=== PATIENT | female | born 1985 | race Two or more races ===

== ENCOUNTER 2022-05-31 20:35 | Emergency (ER) | payer OTHER | END 2022-05-31 22:44 | disposition left against medical advice (07) | LOC: ER 20:35 | DX: K92.1 Melena (principal); Z53.21 Procedure and treatment not carried out due to patient leaving prior to being seen by health care provider ==

== ENCOUNTER 2022-06-01 20:10 | Emergency (ER) | payer OTHER ==
[~2022-06-01] VITALS: Ht 137.2 cm; Wt 89.0 kg
[2022-06-01 20:19] VITALS: BP 113/87
[2022-06-01 21:07] LABS: Basophils # (auto) 0 10 ^3/uL (0-0.2); Basophils % (auto) 0.5 % (0.0-2.0); Eosinophils # (auto) 0.3 10 ^3/uL (0-0.8); Eosinophils % (auto) 3.4 % (0.0-7.0); Hematocrit 38.9 % (36.0-46.0); Hemoglobin 13.5 g/dL (12.2-16.2); Lymphocytes # (auto) 2.3 10 ^3/uL (0.4-5.4); Mean Corpuscular Hemoglobin 31.9 pg (28.0-32.0); Mean Corpuscular Hgb Conc. 34.9 g/dL (32.0-36.0); Mean Corpuscular Volume 91.6 fL (80.0-100.0); Monocytes # (auto) 0.5 10 ^3/uL (0-1.3); Monocytes % (auto) 4.7 % (0.0-12.0); Neutrophils % (auto) 68.4 % (37.0-80.0); Nucleated Red Blood Cells % 0.1 %; Red Blood Cells 4.24 10^6/uL (4.0-5.20); Red Cell Distribution Width 14.2 % (11.8-14.3); White Blood Cell 10.2 10^3/uL (4.4-10.8)
[2022-06-01 21:13] LABS: Albumin 3.7 g/dL (3.4-5.0); Calcium 8.2 mg/dL (8.5-10.1); Potassium 4.2 mmol/L (3.5-5.1)
[2022-06-01 21:18] LABS: BUN/Creatinine Ratio 16.2; Bilirubin, Total 0.5 mg/dL (0.2-1.0); Total Protein 7.6 g/dL (6.4-8.2)
[2022-06-01] MEDS ORDERED: SODIUM CHLORIDE 0.9% 1,000 ML IV ONE (22:45)
[2022-06-01] MEDS ORDERED: GOLYTELY 4L KIT PO ONE (22:45)
[2022-06-01 23:18] LABS: Urine Bacteria NONE SEEN /hpf (None Seen); Urine Blood Negative /uL (Negative); Urine Specific Gravity 1.019 (1.001-1.035); Urine WBC 7 /hpf (0 - 5)
[2022-06-01 23:28] LABS: Amphetamine Screen, Urine NEGATIVE (NEGATIVE); Barbiturate Scree,Urine NEGATIVE (NEGATIVE); Benzodiazephine Screen, Urine NEGATIVE (NEGATIVE); Cannabinoid Screen, Urine NEGATIVE (NEGATIVE); Cocaine Screen, Urine NEGATIVE (NEGATIVE); Opiate Scree,Urine NEGATIVE (NEGATIVE); Phencyclidine Screen, Urine NEGATIVE (NEGATIVE)
== END 2022-06-01 20:20 | disposition home or self-care (01) ==
LOC: ER 20:12
DX: K59.00 Constipation, unspecified (principal); F10.10 Alcohol abuse, uncomplicated; Z90.49 Acquired absence of other specified parts of digestive tract; Z79.899 Other long term (current) drug therapy; Z88.2 Allergy status to sulfonamides; Y90.6 Blood alcohol level of 120-199 mg/100 ml
CPT/HCPCS: 36415; 74176; 80053; 80307; 80320; 81001; 83690; 84702; 85025

== ENCOUNTER 2022-06-03 09:10 | Emergency (ER) | payer OTHER ==
[~2022-06-03] VITALS: Ht 162.6 cm; Wt 87.3 kg
[2022-06-03 09:20] VITALS: BP 129/79
[2022-06-03 10:00] LABS: Urine Bacteria FEW /hpf (None Seen); Urine Blood Negative /uL (Negative); Urine Hyaline Cast FEW /lpf (0 - 2); Urine Specific Gravity 1.016 (1.001-1.035); Urine WBC 4 /hpf (0 - 5)
[2022-06-03] MEDS ORDERED: CEPH-510 PO (10:15)
[2022-06-03 10:23] LABS: Basophils # (auto) 0 10 ^3/uL (0-0.2); Basophils % (auto) 0.4 % (0.0-2.0); Eosinophils # (auto) 0.3 10 ^3/uL (0-0.8); Eosinophils % (auto) 3.8 % (0.0-7.0); Hematocrit 41.7 % (36.0-46.0); Hemoglobin 13.8 g/dL (12.2-16.2); Lymphocytes # (auto) 1.5 10 ^3/uL (0.4-5.4); Lymphocytes % (auto) 18.2 % (10.0-50.0); Mean Corpuscular Hemoglobin 30.7 pg (28.0-32.0); Mean Corpuscular Hgb Conc. 33.2 g/dL (32.0-36.0); Mean Corpuscular Volume 92.5 fL (80.0-100.0); Monocytes # (auto) 0.4 10 ^3/uL (0-1.3); Monocytes % (auto) 5.3 % (0.0-12.0); Neutrophils # (auto) 5.9 10 ^3/uL (1.6-8.6); Neutrophils % (auto) 72.3 % (37.0-80.0); Red Blood Cells 4.51 10^6/uL (4.0-5.20); Red Cell Distribution Width 14.6 % (11.8-14.3); White Blood Cell 8.1 10^3/uL (4.4-10.8)
[2022-06-03 11:17] LABS: Potassium 4.6 mmol/L (3.5-5.1)
[2022-06-03 11:23] LABS: BUN/Creatinine Ratio 12.6; Calcium 8.9 mg/dL (8.5-10.1)
[2022-06-03 11:29] LABS: Bilirubin, Total 0.8 mg/dL (0.2-1.0); Total Protein 7.5 g/dL (6.4-8.2)
== END 2022-06-03 12:28 | disposition left against medical advice (07) ==
LOC: ER 09:13
DX: N39.0 Urinary tract infection, site not specified (principal); Z32.02 Encounter for pregnancy test, result negative; Z90.49 Acquired absence of other specified parts of digestive tract; Z88.2 Allergy status to sulfonamides
CPT/HCPCS: 36415; 74176; 80053; 81001; 81025; 85025

== ENCOUNTER 2023-01-27 10:09 | Emergency (ER) | payer OTHER ==
[~2023-01-27] VITALS: Ht 165.1 cm; Wt 83.0 kg
[~2023-01-27 10:09] MED LIST: CEPH-510 PO
[2023-01-27] MEDS ORDERED: IOHEXOL 300 MG/ML 100ML BOTTLE IJ ONE (10:28)
[2023-01-27 10:41] LABS: Basophils # (auto) 0 10 ^3/uL (0-0.2); Basophils % (auto) 0.6 % (0.0-2.0); Eosinophils # (auto) 0.4 10 ^3/uL (0-0.8); Eosinophils % (auto) 6.7 % (0.0-7.0); Hematocrit 40.5 % (36.0-46.0); Lymphocytes # (auto) 1.2 10 ^3/uL (0.4-5.4); Lymphocytes % (auto) 20.8 % (10.0-50.0); Mean Corpuscular Hemoglobin 30.7 pg (28.0-32.0); Mean Corpuscular Hgb Conc. 34.7 g/dL (32.0-36.0); Mean Corpuscular Volume 88.3 fL (80.0-100.0); Monocytes # (auto) 0.4 10 ^3/uL (0-1.3); Monocytes % (auto) 7.1 % (0.0-12.0); Neutrophils # (auto) 3.9 10 ^3/uL (1.6-8.6); Neutrophils % (auto) 64.8 % (37.0-80.0); Red Blood Cells 4.58 10^6/uL (4.0-5.20)
[2023-01-27 11:01] LABS: Albumin 3.7 g/dL (3.4-5.0); Calcium 8.8 mg/dL (8.5-10.1); Potassium 4.8 mmol/L (3.5-5.1)
[2023-01-27 11:05] LABS: BUN/Creatinine Ratio 15.6 (10.0-20.0); Total Protein 7.6 g/dL (6.4-8.2)
[2023-01-27] MEDS ORDERED: ONDANSETRON HCL 4 MG/2 ML VIAL IV ONE (11:15)
[2023-01-27] MEDS ORDERED: MORPHINE SULFATE 4 MG/ML SYR/VIAL IV ONE (11:15)
[2023-01-27] MEDS ORDERED: TRAM50TA2 PO (12:14)
[2023-01-27] MEDS ORDERED: TETANUS-DIPTH-ACEL PERTUSSIS 0.5ML SYR Tdap IM ONE (12:30)
[2023-01-27 12:49] VITALS: BP 113/75
== END 2023-01-27 13:24 | disposition home or self-care (01) ==
LOC: ER 10:09 → EDBD 10:09 → ER 13:24
DX: S01.312A Laceration without foreign body of left ear, initial encounter (principal); S16.1XXA Strain of muscle, fascia and tendon at neck level, initial encounter; M54.9 Dorsalgia, unspecified; M25.562 Pain in left knee; F17.290 Nicotine dependence, other tobacco product, uncomplicated; Z88.2 Allergy status to sulfonamides; V89.2XXA Person injured in unspecified motor-vehicle accident, traffic, initial encounter; Y93.89 Activity, other specified; Y92.89 Other specified places as the place of occurrence of the external cause; Y99.8 Other external cause status
CPT/HCPCS: 36415; 70450; 72125; 73552; 73560; 74177; 80053; 85025; 90471; 90715; 96374; 96375; 99285; J2270; J2405; Q9967

== ENCOUNTER 2023-01-31 17:03 | Emergency (ER) | payer OTHER ==
[~2023-01-31] VITALS: Ht 162.6 cm; Wt 80.0 kg
[~2023-01-31 17:03] MED LIST changes: +TRAM50TA2 PO
[2023-01-31 17:10] VITALS: BP 134/86
[2023-02-01] MEDS ORDERED: ONDA-144 PO (04:10)
[2023-02-01] MEDS ORDERED: PERCOT PO (04:10)
== END 2023-02-01 03:19 | disposition left against medical advice (07) ==
LOC: ER 17:03
DX: S09.90XA Unspecified injury of head, initial encounter (principal); Z88.2 Allergy status to sulfonamides; Z90.49 Acquired absence of other specified parts of digestive tract; V49.9XXA Car occupant (driver) (passenger) injured in unspecified traffic accident, initial encounter; Y93.89 Activity, other specified; Y92.89 Other specified places as the place of occurrence of the external cause; Y99.8 Other external cause status
CPT/HCPCS: 70450

== ENCOUNTER 2024-05-07 08:37 | Emergency (ER) | payer BC, OTHER ==
[~2024-05-07] VITALS: Ht 162.6 cm; Wt 94.8 kg
[~2024-05-07 08:37] MED LIST changes: +ONDA-144 PO; +PERCOT PO
[2024-05-07 08:48] VITALS: RESP 16
[2024-05-07 09:21] VITALS: BP 134/90; PULSE 80; O2SAT 98
[2024-05-07] MEDS: KETOROLAC TROMETH 30 MG/ML 1ML VIAL IM ONE (09:50)
[2024-05-07] MEDS ORDERED: NAPR-957 PO (10:15)
[2024-05-07] MEDS ORDERED: CYCL-837 PO (10:15)
== END 2024-05-07 10:18 | disposition home or self-care (01) ==
LOC: ER 08:37
DX: M54.2 Cervicalgia (principal); Z88.2 Allergy status to sulfonamides; Z79.899 Other long term (current) drug therapy; Z90.49 Acquired absence of other specified parts of digestive tract; Z98.890 Other specified postprocedural states; Z79.1 Long term (current) use of non-steroidal anti-inflammatories (NSAID); Z79.891 Long term (current) use of opiate analgesic; V89.2XXA Person injured in unspecified motor-vehicle accident, traffic, initial encounter; Y93.89 Activity, other specified; Y92.89 Other specified places as the place of occurrence of the external cause; Y99.8 Other external cause status
CPT/HCPCS: 72040; 96372; 99283; J1885; J7030

== ENCOUNTER 2024-09-29 10:48 | Emergency (ER) | payer BC, OTHER ==
[~2024-09-29] VITALS: Ht 162.6 cm; Wt 102.9 kg
[~2024-09-29 10:48] MED LIST changes: +CYCL-837 PO; +NAPR-957 PO
[2024-09-29 12:38] VITALS: BP 145/97; PULSE 96; RESP 20; TEMP 98.4; O2SAT 100
[2024-09-29] MEDS: HYDROcodone-ACET 5/325MG TAB PO ONE (12:53)
[2024-09-29] MEDS ORDERED: HYDR-4798 PO (13:09)
--- NOTE | 2024-09-29 13:13 | ED.PDOC ---
Musculoskeletal HPI Comments A 38 YEAR OLD FEMALE PRESENTS TO THE ED WITH COMPLAINT OF LEFT UPPER ARM PAIN DUE TO FRACTURE. PATIENT REPORTS SHE ACCIDENTALLY TRIPPED AND FELL 1 WEEK AGO AND LANDED ON HER LEFT ARM. PATIENT REPORTS SHE WENT TO [facility] WHERE SHE WAS DIAGNOSED WITH A COMMINUTED HUMERUS FRACTURE. PATIENT REPORTS SHE IS STILL EXPERIENCING PAIN TO THIS AREA RECENTLY RAN OUT OF HER PAIN MEDICINE. PATIENT IS REQUESTING THAT HER SPLINT BE CHECKED DUE TO NOT BEING GIVEN ARM SLING. PATIENT DENIES FEVER, CHILLS, SHORTNESS OF BREATH, CHEST PAIN, ABDOMINAL PAIN, NAUSEA, VOMITING, HEADACHE, OR OTHER COMPLAINTS. NO OTHER SYMPTOMS OR MODIFYING FACTORS AT THIS TIME. PATIENT IS ALERT, ORIENTED X 4, AND HAS STEADY GAIT. Chief Complaint: Upper Extremity Time Seen by MD: 11:12 Primary Care Provider: None Reviewed Notes: Nurses Notes, Medications, Allergies Allergies: Coded Allergies: Sulfa Antibiotics (Verified Allergy, Mild, 06/01/22) Home Meds Active Scripts Hydrocodone-Acetaminophen (Hydrocodone Bitartrate/AC 10-325 mg) 1 Tab Tab, 1 TAB PO TID PRN, #12 TAB Prov:NORBERTO VIVAR 09/29/24 Cyclobenzaprine Hcl (Cyclobenzaprine Hcl) 5 Mg Tab, 1 TAB PO QHSP PRN for 30 Days, #30 TAB 0 Refills Prov:BALJIT SELF NP 05/07/24 Naproxen (Naproxen) 375 Mg Tab, 1 TAB PO BIDPC for 14 Days, #28 TAB 0 Refills Prov:BALJIT SELF NP 05/07/24 Ondansetron (Zofran) 4 Mg Tab, 4 MG PO BID for 7 Days, #14 MG Prov:MACIEJ OTERO MD 02/01/23 Oxycodone W/ Acetaminophen (Percocet 5/325MG) 1 Tab Tb, 1 TAB PO BID for 7 Days, #14 TAB Prov:MACIEJ OTERO MD 02/01/23 Tramadol Hcl (Tramadol Hcl) 50 Mg Tab, 50 MG PO Q6HP PRN for 7 Days, #28 TAB Prov:SAMPSON KHAN MD 01/27/23 Cephalexin ( Keflex 500) 500 Mg Cap, 1 CAP PO TID for 7 Days, #21 CAP Prov:VIKKI POOLE MD 06/03/22 Information Source: Patient Mode of Arrival: Ambulatory Location: Left Extremity Location: Arm Timing: Days Prehospital treatment: None Severity: Moderate Able to Move Extremity: Yes Bear Weight: Fully Pain: Moderate Mechanism: Blunt Trauma Circumstances: Fall Onset of Symptoms: After Trauma Symptoms: Pain DVT Risk Factors: NONE Associated signs and symptoms: Arm pain Past Medical History PAST MEDICAL HISTORY: Denies Surgical History: BTL, Cholecystectomy SWATCH PASTER History: Denies all SWATCH PASTER Hx Family History Family History: Reviewed,noncontributory to illness, Family hx of DM, Family hx of Cancer Social History Smoker: Non-Smoker Alcohol: Occasionally Drugs: Denies Drug Use Lives In: Home Constitutional: denies: chills, diaphoresis, fatigue, fever, malaise, sweats, weakness, others EENTM: denies: blurred vision, double vision, ear bleeding, ear discharge, ear drainage, ear pain, ear ringing, eye pain, eye redness, hearing loss, mouth pain, mouth swelling, nasal discharge, nose bleeding, nose congestion, nose pain, photophobia, tearing, throat pain, throat swelling, voice changes, others Respiratory: denies: cough, hemoptysis, orthopnea, SOB at rest, shortness of breath, SOB with excertion, stridor, wheezing, others Cardiovascular: denies: chest pain, dizzy spells, diaphoresis, Dyspnea on exertion, edema, irregular heart beat, left arm pain, lightheadedness, palpitations, PND, syncope, others Gastrointestinal: denies: abdomen distended, abdominal pain, blood streaked bowels, constipated, diarrhea, dysphagia, difficulty swallowing, hematemesis, melena, nausea, poor appetite, poor fluid intake, rectal bleeding, rectal pain, vomiting, others Genitourinary: denies: abnormal vagina bleeding, burning, dyspareunia, dysuria, flank pain, frequency, hematuria, incontinence, pain, , vagina d ischarge, urgency, others Neurological: denies: dizziness, fainting, headache, left sided numbness, left sided weakness, numbness, paresthesia, pre-existing deficit, right sided numbness, right sided weakness, seizure, speech problems, tingling, tremors, weakness, others Musculoskeletal: reports: joint pain, joint swelling, others (LEFT UPPER ARM PAIN); denies: back pain, gout, muscle stiffness, neck pain Integumetry: denies: bruises, change in color, change in hair/nails, dryness, laceration, lesions, lumps, rash, wounds, others Allergic/Immunocompromised: denies: Difficulty Healing, Frequent Infections, Hives, Itching, others Hematologic/Lymphatic: denies: anemia, blood clots, easy bleeding, easy bruising, swollen glands, others Endocrine: denies: excessive hunger, excessive sweating, excessive thirst, excessive urination, flushing, intolerance to cold, intolerance to heat, unexplained weight gain, unexplained weight loss, others Psychiatric: denies: anxiety, bipolar disorder, depression, hopeless, panic disorder, schizophrenia, sleepless, suicidal, others All Other Systems: Reviewed and Negative Physical Exam General Appearance: No Apparent Distress, Obese HEENT: Normal ENT Inspection, PERRL/EOMI, Pharynx Normal, TMs Normal Neck: Full Range of Motion, Non-Tender, Normal, Normal Inspection Respiratory: Chest Non-Tender, Lungs Clear, No Accessory Muscle Use, No Respiratory Distress, Normal Breath Sounds Cardiovascular: No Edema, No JVD, No Murmur, No Gallop, Normal Peripheral Pulses, Regular Rate/Rhythm Breast Exam: Deferred Gastrointestinal: No Organomegaly, Non Tender, No Pulsatile Mass, Normal Bowel Sounds, Soft Genitalia: Deferred Pelvic: Deferred Rectal: Deferred Extremities: Decreased range of motion, No calf tenderness, Normal capillary refill, No pedal edema, Tender (BONY TENDERNESS AND MILD SWELLING ON LEFT ARM, SPLINT ON LEFT UPPER EXTREMITY, MILD TIGHT SPLINT, NO SKIN REDNESS AND DEFORMITY. NEUROVASCULAR INTACT. ) Musculoskeletal : Apperance: Normal Neurologic: Alert, minister of religion II-XII nml as Tested, No Motor Deficits, Normal Affect, Normal Mood, No Sensory Deficits Cerebellar Function: Normal Reflexes: Normal Skin: Dry, Normal Color, Warm Peripheral Pulses: 2+ carotid (R), 2+ carotid (L), 2+ dorsalis pedis (R), 2+ dorsalis pedis (L) Lymphatic: No Adenopathy Was a procedure done? Was a procedure done?: No Differential Diagnosis EXT Differential Diagnosis: Fracture, Strain X-Ray, Labs, Meds, VS Vital Signs Date Time Temp Pulse Resp B/P (MAP) Pulse Ox O2 Delivery O2 Flow Rate FiO2 09/29/24 12:38 96 20 100 Room Air 09/29/24 12:38 98.4 96 20 145/97 (113) 100 98.4 09/29/24 11:55 98.4 96 20 145/97 (113) 100 Current Medications Medications (Trade) Dose Ordered Sig/Carolyne Route Start Time Stop Time Status Last Admin Acetaminophen/ Hydrocodone Bitart ([place] 5/325MG Tab) 1 tab ONCE ONCE PO 09/29/24 12:45 09/29/24 12:46 DC 09/29/24 12:53 X-Ray, Labs, Meds, VS Comment EXTERNAL MEDICAL RECORDS REVIEWED: [NONE] INDEPENDENT HISTORIANS: [NONE] SOCIAL DETERMINANTS OF HEALTH: [NONE] LABS ORDERED: NONE REVIEWED AND INTERPRETED RESULTS: NONE IMAGING ORDERED: NONE TREATMENTS ORDERED: PATIENT HAS SPLINT ON HER LEFT UPPER ARM WAS ADJUSTED. ARM SLING WAS APPLIED.NORCO 10/325 PO. PROCEDURES PERFORMED: NONE CRITICAL CARE TIME: NONE I HAVE DISCUSSED THE PATIENT WITH THE ATTENDING PHYSICIAN DR. POOLE AND HE AG DANIELLE WITH THE PATIENT'S PLAN OF CARE AND DISPOSITION. BASED ON HISTORY OF PRESENT ILLNESS, AND PHYSICAL EXAM, PATIENT WILL BE D ISCHARGED HOME. DISCUSSED PLAN FOR DISCHARGE HOME WITH RX [NORCO 10/325MG PO]. MEDICATION WARNINGS GIVEN. SHARED DECISION MAKING: PATIENT INSTRUCTED TO FOLLOW UP WITH PRIMARY CARE PROVIDER IN 1-2 DAYS FOR RE-EVALUATION OF SYMPTOMS. PATIENT VERBALIZES UND ERSTANDING TO RETURN TO ED FOR NEW OR WORSENING SYMPTOMS OR IF FOLLOW UP WITH PCP CANNOT BE OBTAINED. PATIENT FEELS COMFORTABLE GOING HOME AT THIS TIME. ALL QUESTIONS ADDRESSED AT TIME OF DISCHARGE. Time of 1ST Reevaluation: 13:30 Reevaluation 1ST: Improved Patient Education/Counseling: Diagnosis, Treatment, Need For Follow Up Family Education/Counseling: Diagnosis, Treatment, Need For Follow Up Medical Screening: No EMC Exist At This Time Departure 1 Departure Time of Disposition: 13:30 Impression: Primary Impression: Pain management Additional Impressions: Encounter for cast care History of humerus fracture Disposition: 01 HOME / SELF CARE / HOMELESS Condition: Stable Additional Instructions: FOLLOW-UP WITH PCP IN 1 TO 2 DAYS FOR REFERRAL TO SUPPORT SERVICES COORDINATOR. TAKE MEDICATIONS PRESCRIBED. RETURN TO ED FOR ANY NEW OR WORSENING SYMPTOMS. e-Prescriptions Hydrocodone-Acetaminophen (Hydrocodone Bitartrate/AC 10-325 mg) 1 Tab Tab 1 TAB PO TID PRN, #12 TAB Prov: NORBERTO VIVAR 09/29/24 Discharged With: Self, Spouse Critical Care Note Critical Care Time?: No Stability Stability form required: No I personally scribed for NORBERTO VIVAR ([email or web address]) on 09/29/24 at 13:13. Electronically submitted by Brooks Romero ([email or web address]). NORBERTO VIVAR Sep 29, 2024 13:13
== END 2024-09-29 13:19 | disposition home or self-care (01) ==
LOC: ER 10:48
DX: M79.622 Pain in left upper arm (principal); Z00.00 Encounter for general adult medical examination without abnormal findings; Z88.2 Allergy status to sulfonamides; Z79.899 Other long term (current) drug therapy; Z90.49 Acquired absence of other specified parts of digestive tract; Z98.890 Other specified postprocedural states

== ENCOUNTER 2024-09-30 03:57 | Emergency (ER) | payer BC, OTHER ==
[~2024-09-30] VITALS: Ht 162.6 cm; Wt 104.3 kg
[~2024-09-30 03:57] MED LIST changes: +HYDR-4798 PO
[2024-09-30] MEDS: KETOROLAC TROMETH 60MG/2ML VIAL IM ONE (05:22)
[2024-09-30] MEDS: ONDANSETRON ODT 4 MG TAB PO ONE (05:34)
[2024-09-30 05:35] VITALS: BP 117/76; PULSE 89; RESP 17; TEMP 98; O2SAT 95
--- NOTE | 2024-09-30 05:52 | ED.PDOC ---
Back pain HPI HPI Comments This is a 38-year-old female presents to the ED chief complaint left upper arm pain. Patient reports status post fall last week and was seen at [facility] diagnosed with community humerus fracture. Was placed in a splint however patient states that the splint is loose in his sliding off causing more pain and swelling in the left arm. She is complaining of left arm pain 6/10 on pain scale throbbing in nature nonradiating type pain. She denies any new injury. Denies any numbness or weakness at this time. Chief Complaint: Upper Extremity Time Seen by MD: 04:09 Primary Care Provider: None Reviewed Notes: Nurses Notes, Medications, Allergies Allergies: Coded Allergies: Sulfa Antibiotics (Verified Allergy, Mild, 06/01/22) Home Meds Active Scripts Hydrocodone-Acetaminophen (Hydrocodone Bitartrate/AC 10-325 mg) 1 Tab Tab, 1 TAB PO TID PRN, #12 TAB Prov:NORBERTO VIVAR 09/29/24 Cyclobenzaprine Hcl (Cyclobenzaprine Hcl) 5 Mg Tab, 1 TAB PO QHSP PRN for 30 Days, #30 TAB 0 Refills Prov:BALJIT SELF NP 05/07/24 Naproxen (Naproxen) 375 Mg Tab, 1 TAB PO BIDPC for 14 Days, #28 TAB 0 Refills Prov:BALJIT SELF NP 05/07/24 Ondansetron (Zofran) 4 Mg Tab, 4 MG PO BID for 7 Days, #14 MG Prov:MACIEJ OTERO MD 02/01/23 Oxycodone W/ Acetaminophen (Percocet 5/325MG) 1 Tab Tb, 1 TAB PO BID for 7 Days, #14 TAB Prov:MACIEJ OTERO MD 02/01/23 Tramadol Hcl (Tramadol Hcl) 50 Mg Tab, 50 MG PO Q6HP PRN for 7 Days, #28 TAB Prov:SAMPSON KHAN MD 01/27/23 Cephalexin ( Keflex 500) 500 Mg Cap, 1 CAP PO TID for 7 Days, #21 CAP Prov:VIKKI POOLE MD 06/03/22 Information Source: Patient Mode of Arrival: Ambulatory Past Medical History PAST MEDICAL HISTORY: Denies Surgical History: BTL, Cholecystectomy STREETCAR REPAIRER History: Denies all STREETCAR REPAIRER Hx Family History Family History: Reviewed,noncontributory to illness, Family hx of DM, Family hx of Cancer Social History Smoker: Non-Smoker Alcohol: Occasionally Drugs: Denies Drug Use Lives In: Home Constitutional: denies: chills, diaphoresis, fatigue, fever, malaise, sweats, weakness, others EENTM: denies: blurred vision, double vision, ear bleeding, ear discharge, ear drainage, ear pain, ear ringing, eye pain, eye redness, hearing loss, mouth pain, mouth swelling, nasal discharge, nose bleeding, nose congestion, nose pain, photophobia, tearing, throat pain, throat swelling, voice changes, others Respiratory: denies: cough, hemoptysis, orthopnea, SOB at rest, shortness of breath, SOB with excertion, stridor, wheezing, others Cardiovascular: denies: chest pain, dizzy spells, diaphoresis, Dyspnea on exertion, edema, irregular heart beat, left arm pain, lightheadedness, palpitations, PND, syncope, others Gastrointestinal: denies: abdomen distended, abdominal pain, blood streaked bowels, constipated, diarrhea, dysphagia, difficulty swallowing, hematemesis, melena, nausea, poor appetite, poor fluid intake, rectal bleeding, rectal pain, vomiting, others Genitourinary: denies: abnormal vagina bleeding, burning, dyspareunia, dysuria, flank pain, frequency, hematuria, incontinence, pain, , vagina discharge, urgency, others Neurological: denies: dizziness, fainting, headache, left sided numbness, left sided weakness, numbness, paresthesia, pre-existing deficit, right sided numbness, right sided weakness, seizure, speech problems, tingling, tremors, weakness, others Musculoskeletal: reports: others (Left upper arm pain swelling); denies: back pain, gout, joint pain, joint swelling, muscle pain, muscle stiffness, neck pain Integumetry: denies: bruises, change in color, change in hair/nails, dryness, laceration, lesions, lumps, rash, wounds, others Allergic/Immunocompromised: denies: Difficulty Healing, Frequent Infections, Hives, Itching, others Hematologic/Lymphatic: denies: anemia, blood clots, easy bleeding, easy bruising, swollen glands, others Endocrine: denies: excessive hunger, excessive sweating, excessive thirst, excessive urination, flushing, intolerance to cold, intolerance to heat, unexplained weight gain, unexplained weight loss, others Psychiatric: denies: anxiety, bipolar disorder, depression, hopeless, panic disorder, schizophrenia, sleepless, suicidal, others Physical Exam General Appearance: No Apparent Distress, Normal HEENT: Pharynx Normal Neck: Full Range of Motion, Non-Tender Respiratory: Lungs Clear, No Respiratory Distress, Normal Breath Sounds Cardiovascular: No Murmur, Normal Peripheral Pulses, Regular Rate/Rhythm Breast Exam: Deferred Gastrointestinal: Non Tender, Soft Genitalia: Deferred Pelvic: Deferred Rectal: Deferred Extremities: No calf tenderness, Normal capillary refill, Normal inspection, Normal range of motion, Non-tender, No pedal edema Musculoskeletal : Location: Left Extremity Location: Arm (Left upper arm and half of the splint. Sensory strength and motion intact to left arm positive radial pulse.) Apperance: Normal Neurologic: Alert, lean facilitator II-XII nml as Tested, No Motor Deficits, Normal Affect, Normal Mood, No Sensory Deficits Cerebellar Function: Normal Reflexes: Normal Skin: Dry, Normal Color, Warm Lymphatic: No Adenopathy Was a procedure done? Was a procedure done?: No Back Pain Differential Dx Differential Diagnosis: Fracture X-Ray, Labs, Meds, VS Vital Signs Date Time Temp Pulse Resp B/P (MAP) Pulse Ox O2 Delivery O2 Flow Rate FiO2 09/30/24 05:35 98.0 89 17 117/76 (90) 95 98.0 09/30/24 05:35 89 17 95 Room Air 09/30/24 04:11 98.0 97 16 123/78 (93) 100 Current Medications Medications (Trade) Dose Ordered Sig/Carolyne Route Start Time Stop Time Status Last Admin Ketorolac Tromethamine (Toradol Injection) 60 mg ONCE ONCE IM 09/30/24 05:15 09/30/24 05:16 DC 09/30/24 05:22 Ondansetron HCl (Zofran Po) 4 mg ONCE ONCE PO 09/30/24 05:45 09/30/24 05:46 DC 09/30/24 05:34 Prochlorperazine Edisylate (Compazine Inj) 5 mg ONCE ONCE IM 09/30/24 06:30 09/30/24 06:31 DC 09/30/24 06:48 X-Ray, Labs, Meds, VS Comment X-ray left humerus Patient states took 2 5 mg [facility] prior to arrival. He is complaining of pain 7/10 on pain scale left humerus she is also complaining of some nausea. Patient given Zofran 4 mg p.o. and Toradol 60 mg IM patient tolerated well. Left humerus fracture displaced mid shaft un-stable. Page to ortho we will admit patient pending ortho acceptance. 10:00 This patient has elected to leave Which he will drive to [facility] for ortho consultation I explained the risks of leaving Patient voiced understanding. Time of 1ST Reevaluation: 06:25 Reevaluation 1ST: Unchanged Patient Education/Counseling: Diagnosis, Treatment, Prognosis, Need For Follow Up Family Education/Counseling: Diagnosis, Treatment, Prognosis, Need For Follow Up Departure 1 Departure Time of Disposition: 10:02 Impression: Primary Impression: History of humerus fracture Disposition: 01 HOME / SELF CARE / HOMELESS Condition: Stable Critical Care Note Critical Care Time?: No Stability Stability form required: JOAQUIN Pagan Sep 30, 2024 05:52 BALJIT SELF RN SURGERY Sep 30, 2024 10:02
--- NOTE | 2024-09-30 06:05 | DVH ---
CLINICAL INDICATION: fx/splint fell off TECHNIQUE: XY L HUMERUS XRAY 2 views Comparison: XY L KNEE 2V XRAY on DOS: 01/27/23, XY L FEMUR XRAY on DOS: 01/27/23 FINDINGS/IMPRESSION: There is an oblique mildly displaced fracture of the left distal humeral diaphysis with mild lateral angulation of the distal fragment. Comminution is difficult to assess on limited views.
[2024-09-30] MEDS: PROCHLORPERAZINE EDISYLATE 5 MG/ML 2ML VIAL IM ONE (06:48)
== END 2024-09-30 10:02 | disposition home or self-care (01) ==
LOC: ER 03:57
DX: S42.402A Unspecified fracture of lower end of left humerus, initial encounter for closed fracture (principal); Z88.2 Allergy status to sulfonamides; Z90.49 Acquired absence of other specified parts of digestive tract; Z98.51 Tubal ligation status; W18.09XA Striking against other object with subsequent fall, initial encounter; Y93.89 Activity, other specified; Y92.89 Other specified places as the place of occurrence of the external cause; Y99.8 Other external cause status
CPT/HCPCS: 73060; 96372; 99284; J0780; J1885; Q0162

== ENCOUNTER 2024-10-23 16:49 | Emergency (ER) | payer BC, OTHER ==
[~2024-10-23] VITALS: Ht 160 cm; Wt 106.0 kg
[2024-10-23 17:21] VITALS: BP 153/91; PULSE 91; RESP 17; O2SAT 96
[2024-10-23] MEDS ORDERED: cefTRIAXone SOD 1,000 MG VL IM ONE (17:30)
--- NOTE | 2024-10-23 18:27 | ED.PDOC ---
Musculoskeletal HPI Comments 38-year-old female complaining of pain and redness to left upper arm biceps region. Patient states she had a fracture in her humerus, she had ORIF surgery on October 16 at an outpatient clinic in [facility]. States she tried to call surgeon but has not had a call back. Patient reports increased pain limited range of motion with the elbow states no fever. Chief Complaint: Upper Extremity Time Seen by MD: 17:21 Primary Care Provider: unknown Reviewed Notes: Nurses Notes Allergies: Coded Allergies: Sulfa Antibiotics (Verified Allergy, Mild, 06/01/22) Home Meds Active Scripts Hydrocodone-Acetaminophen (Hydrocodone Bitartrate/AC 10-325 mg) 1 Tab Tab, 1 TAB PO TID PRN, #12 TAB Prov:NORBERTO VIVAR 09/29/24 Cyclobenzaprine Hcl (Cyclobenzaprine Hcl) 5 Mg Tab, 1 TAB PO QHSP PRN for 30 D ays, #30 TAB 0 Refills Prov:BALJIT SELF FLOWER SHOP MANAGER 05/07/24 Naproxen (Naproxen) 375 Mg Tab, 1 TAB PO BIDPC for 14 Days, #28 TAB 0 Refills Prov:BALJIT SELF NP 05/07/24 Ondansetron (Zofran) 4 Mg Tab, 4 MG PO BID for 7 Days, #14 MG Prov:MACIEJ OTERO MD 02/01/23 Oxycodone W/ Acetaminophen (Percocet 5/325MG) 1 Tab Tb, 1 TAB PO BID for 7 Days, #14 TAB Prov:MACIEJ OTERO MD 02/01/23 Tramadol Hcl (Tramadol Hcl) 50 Mg Tab, 50 MG PO Q6HP PRN for 7 Days, #28 TAB Prov:SAMPSON KHAN MD 01/27/23 Cephalexin ( Keflex 500) 500 Mg Cap, 1 CAP PO TID for 7 Days, #21 CAP Prov:VIKKI POOLE MD 06/03/22 Information Source: Patient Mode of Arrival: Ambulatory Location: Left Extremity Location: Arm Past Medical History PAST MEDICAL HISTORY: Denies Surgical History: BTL, Cholecystectomy TIRE LAYER History: Denies all TIRE LAYER Hx Family History Family History: Reviewed,noncontributory to illness, Family hx of DM, Family hx of Cancer Social History Smoker: Non-Smoker Alcohol: Occasionally Drugs: Denies Drug Use Lives In: Home Constitutional: denies: chills, diaphoresis, fatigue, fever, malaise, sweats, weakness, others EENTM: denies: blurred vision, double vision, ear bleeding, ear discharge, ear drainage, ear pain, ear ringing, eye pain, eye redness, hearing loss, mouth pain, mouth swelling, nasal discharge, nose bleeding, nose congestion, nose pain, photophobia, tearing, throat pain, throat swelling, voice changes, others Respiratory: denies: cough, hemoptysis, orthopnea, SOB at rest, shortness of breath, SOB with excertion, stridor, wheezing, others Cardiovascular: denies: chest pain, dizzy spells, diaphoresis, Dyspnea on exertion, edema, irregular heart beat, left arm pain, lightheadedness, palpitations, PND, syncope, others Gastrointestinal: denies: abdomen distended, abdominal pain, blood streaked bowels, constipated, diarrhea, dysphagia, difficulty swallowing, hematemesis, melena, nausea, poor appetite, poor fluid intake, rectal bleeding, rectal pain, vomiting, others Genitourinary: denies: abnormal vagina bleeding, burning, dyspareunia, dysuria, flank pain, frequency, hematuria, incontinence, pain, , vagina discharge, urgency, others Neurological: denies: dizziness, fainting, headache, left sided numbness, left sided weakness, numbness, paresthesia, pre-existing deficit, right sided numbness, right sided weakness, seizure, speech problems, tingling, tremors, weakness, others Musculoskeletal: reports: muscle pain, muscle stiffness; denies: back pain, gout, joint pain, joint swelling, neck pain, others Integumetry: reports: wounds (Left bicep); denies: bruises, change in color, change in hair/nails, dryness, laceration, lesions, lumps, rash, others Allergic/Immunocompromised: denies: Difficulty Healing, Frequent Infections, Hives, Itching, others Physical Exam General Appearance: No Apparent Distress, Normal HEENT: Normal ENT Inspection, Pharynx Normal, TMs Normal Neck: Full Range of Motion, Non-Tender, Normal, Normal Inspection Respiratory: Chest Non-Tender, Lungs Clear, No Accessory Muscle Use, No Respiratory Distress, Normal Breath Sounds Cardiovascular: No Edema, No JVD, No Murmur, No Gallop, Normal Peripheral Pul ses, Regular Rate/Rhythm Breast Exam: Deferred Gastrointestinal: No Organomegaly, Non Tender, No Pulsatile Mass, Normal Bowel Sounds, Soft Genitalia: Deferred Pelvic: Deferred Rectal: Deferred Extremities: No calf tenderness, Normal capillary refill, Normal inspection, Normal range of motion, Non-tender, No pedal edema Musculoskeletal : Location: Left Extremity Location: Arm (Limited range of motion in left arm due to pain. He was a large suture line noted over the biceps of the left arm. Surrounding area is mildly erythemic but no streaking into the axilla. Distal circulation motor skills intact.) Apperance: Normal Neurologic: Alert, cake decorator II-XII nml as Tested, No Motor Deficits, Normal Affect, Normal Mood, No Sensory Deficits Cerebellar Function: Normal Reflexes: Normal Skin: Dry, Normal Color, Warm Lymphatic: No Adenopathy Was a procedure done? Was a procedure done?: No Differential Diagnosis EXT Differential Diagnosis: Cellulitis, Deep Vein Thrombosis X-Ray, Labs, Meds, VS Vital Signs Date Time Temp Pulse Resp B/P (MAP) Pulse Ox O2 Delivery O2 Flow Rate FiO2 10/23/24 17:21 97.9 91 17 153/91 (111) 96 X-Ray, Labs, Meds, VS Comment Imaging: X-rays and CT scans were reviewed and interpreted by this provider, imaging shows no fractures and no pathological disease. Pending radiology review. Laboratory: Labs reviewed and interpreted by this provider. No significant abnormalities noted. Patient has prior medical visits reviewed. Med reconciliation performed Vital signs reviewed Time of 1ST Reevaluation: 18:27 Reevaluation 1ST: Unchanged Patient Education/Counseling: Diagnosis, Treatment Family Education/Counseling: Diagnosis Departure 1 Departure Time of Disposition: 18:26 Impression: Primary Impression: Cellulitis Qualified Codes: L03.114 - Cellulitis of left upper limb Disposition: LEFT AWOL/ELOPED Condition: Stable Critical Care Note Critical Care Time?: No Stability Stability form required: No Heart Score Heart Score: Heart Score Response (Comments) Value History N/A 0 EKG N/A 0 Age N/A 0 Risk Factors N/A 0 Troponin N/A 0 Total 0 ANUJ FREDERICK Oct 23, 2024 18:27
== END 2024-10-23 18:11 | disposition left against medical advice (07) ==
LOC: ER 16:49
DX: L03.114 Cellulitis of left upper limb (principal); Z79.899 Other long term (current) drug therapy; Z90.49 Acquired absence of other specified parts of digestive tract; Z98.51 Tubal ligation status; Z88.2 Allergy status to sulfonamides

== ENCOUNTER 2025-01-02 23:39 | Emergency (ER) | payer BC, OTHER ==
[~2025-01-02] VITALS: Ht 162.6 cm; Wt 91.5 kg
[2025-01-03 02:38] VITALS: BP 121/80; PULSE 98; RESP 18; TEMP 98.6; O2SAT 98
[2025-01-03] MEDS: FAMOTIDINE 20 MG TAB PO ONE (03:33)
[2025-01-03] MEDS ORDERED: METH4PAK PO (03:34)
[2025-01-03] MEDS ORDERED: FAMO-161 PO (03:34)
[2025-01-03] MEDS: DexAMETHasone SOD PHOS 10MG/1ML VIAL INJ IM ONE (03:34)
[2025-01-03] MEDS: diphenhdrAMINE HCL 50 MG/1 ML VL IM ONE (03:34)
--- NOTE | 2025-01-03 03:36 | ED.PDOC ---
HPI Allergic reaction HPI Comments PT PRESENTED TO ED FOR RASH TO TORSO, BACK, AND BILATERAL ARMS WITH ITCHINESS X3 DAYS. PT DENIED SOB AND/OR DIET CHANGES. NO TONGUE SWELLING NOTED. DENIES DIFFICULTY BREATHING, CHEST PAIN, SHORTNESS OF BREATH. Chief Complaint: Rash Time Seen by MD: 23:47 Primary Care Provider: unknown Reviewed Notes: Nurses Notes, Medications, Allergies Allergies: Coded Allergies: Sulfa Antibiotics (Verified Allergy, Mild, 06/01/22) Home Meds Active Scripts Hydrocodone-Acetaminophen (Hydrocodone Bitartrate/AC 10-325 mg) 1 Tab Tab, 1 TAB PO TID PRN, #12 TAB Prov:NORBERTO VIVAR 09/29/24 Cyclobenzaprine Hcl (Cyclobenzaprine Hcl) 5 Mg Tab, 1 TAB PO QHSP PRN for 30 Days, #30 TAB 0 Refills Prov:BALJIT SELF NP 05/07/24 Naproxen (Naproxen) 375 Mg Tab, 1 TAB PO BIDPC for 14 Days, #28 TAB 0 Refills Prov:BALJIT SELF NP 05/07/24 Ondansetron (Zofran) 4 Mg Tab, 4 MG PO BID for 7 Days, #14 MG Prov:MACIEJ OTERO MD 02/01/23 Oxycodone W/ Acetaminophen (Percocet 5/325MG) 1 Tab Tb, 1 TAB PO BID for 7 Days, #14 TAB Prov:MACIEJ OTERO MD 02/01/23 Tramadol Hcl (Tramadol Hcl) 50 Mg Tab, 50 MG PO Q6HP PRN for 7 Days, #28 TAB Prov:SAMPSON KHAN MD 01/27/23 Cephalexin ( Keflex 500) 500 Mg Cap, 1 CAP PO TID for 7 Days, #21 CAP Prov:VIKKI POOLE MD 06/03/22 Information Source: Patient Mode of Arrival: Ambulatory Past Medical History PAST MEDICAL HISTORY: Denies Surgical History: BTL, Cholecystectomy BACK WINDER History: Denies all BACK WINDER Hx Family History Family History: Reviewed,noncontributory to illness, Family hx of DM, Family hx of Cancer Social History Smoker: Non-Smoker Alcohol: Occasionally Drugs: Denies Drug Use Lives In: Home Constitutional: denies: chills, diaphoresis, fatigue, fever, malaise, sweats, weakness, others EENTM: denies: blurred vision, double vision, ear bleeding, ear discharge, ear drainage, ear pain, ear ringing, eye pain, eye redness, hearing loss, mouth pain, mouth swelling, nasal discharge, nose bleeding, nose congestion, nose pain, photophobia, tearing, throat pain, throat swelling, voice changes, others Respiratory: denies: cough, hemoptysis, orthopnea, SOB at rest, shortness of breath, SOB with excertion, stridor, wheezing, others Cardiovascular: denies: chest pain, dizzy spells, diaphoresis, Dyspnea on exertion, edema, irregular heart beat, left arm pain, lightheadedness, palpitations, PND, syncope, others Gastrointestinal: denies: abdomen distended, abdominal pain, blood streaked bowels, constipated, diarrhea, dysphagia, difficulty swallowing, hematemesis, melena, nausea, poor appetite, poor fluid intake, rectal bleeding, rectal pain, vomiting, others Genitourinary: denies: abnormal vagina bleeding, burning, dyspareunia, dysuria, flank pain, frequency, hematuria, incontinence, pain, , vagina discharge, urgency, others Neurological: denies: dizziness, fainting, headache, left sided numbness, left sided weakness, numbness, paresthesia, pre-existing deficit, right sided numbness, right sided weakness, seizure, speech problems, tingling, tremors, weakness, others Musculoskeletal: denies: back pain, gout, joint pain, joint swelling, muscle pain, muscle stiffness, neck pain, others Integumetry: reports: rash; denies: bruises, change in color, change in hair/nails, dryness, laceration, lesions, lumps, wounds, others Allergic/Immunocompromised: reports: Hives; denies: Difficulty Healing, Frequent Infections, Itching, others Hematologic/Lymphatic: denies: anemia, blood clots, easy bleeding, easy bruising, swollen glands, others Endocrine: denies: excessive hunger, excessive sweating, excessive thirst, excessive urination, flushing, intolerance to cold, intolerance to heat, unexplained weight gain, unexplained weight loss, others Psychiatric: denies: anxiety, bipolar disorder, depression, hopeless, panic disorder, schizophrenia, sleepless, suicidal, others Physical Exam General Appearance: No Apparent Distress, Normal HEENT: Normal ENT Inspection, Pharynx Normal, TMs Normal Neck: Full Range of Motion, Non-Tender Respiratory: Lungs Clear, No Respiratory Distress, Normal Breath Sounds Cardiovascular: No Murmur, Normal Peripheral Pulses, Regular Rate/Rhythm Breast Exam: Deferred Gastrointestinal: Non Tender, Soft Genitalia: Deferred Pelvic: Deferred Rectal: Deferred Extremities: Normal capillary refill, Normal inspection, Normal range of motion, Non-tender, No pedal edema Musculoskeletal : Apperance: Normal Neurologic: Alert, playground equipment erector II-XII nml as Tested, No Motor Deficits, Normal Affect, Normal Mood, No Sensory Deficits Cerebellar Function: Normal Reflexes: Normal Skin: Dry, Normal Color, Rash (URTICARIAL RASH NOTED ALONG CHEST, ABDOMEN, AND BACK. NO NOTED EXCORIATIONS, OPEN LESIONS.), Warm Lymphatic: No Adenopathy Was a procedure done? Was a procedure done?: No Differential diagnosis (all) Differential Diagnosis: Anaphylaxis, Angioedema, Bronchospasm, Hypotension, Shock X-Ray, Labs, Meds, VS Vital Signs Date Time Temp Pulse Resp B/P (MAP) Pulse Ox O2 Delivery O2 Flow Rate FiO2 01/03/25 02:38 98.6 98 18 121/80 (94) 98 98.6 01/03/25 00:32 98.6 95 18 121/80 (94) 98 98.6 X-Ray, Labs, Meds, VS Comment PATIENT GIVEN DECADRON 10 MG IM, BENADRYL 25 MG IM, AND PEPCID 40 MG P.O.. REPORTS SYMPTOMS REQUESTING DISCHARGE AT THIS TIME. MEDROL DOSEPAK AND PEPCID X6 DAYS. REST INCREASE P.O. FLUIDS WITH ELECTROLYTES. TAKE MEDICATIONS PRESCRIBED SIDE EFFECTS WERE DISCUSSED. FOLLOW UP WITH YOUR PCP IN 1 - 2 DAYS CONSIDER REFERRAL TO AN DISTRIBUTION OPERATIONS MANAGER FOR ALLERGY TESTING IF SYMPTOMS PERSIST. ER RETURN PRECAUTIONS GIVEN PATIENT INDICATES UNDERSTANDING AND AGREES WITH DISCHARGE PLAN OF CARE Time of 1ST Reevaluation: 03:33 Reevaluation 1ST: Improved Patient Education/Counseling: Diagnosis, Treatment, Prognosis, Need For Follow Up Family Education/Counseling: Diagnosis, Treatment, Prognosis, Need For Follow Up Departure 1 Departure Time of Disposition: 03:33 Impression: Primary Impression: Allergic reaction Qualified Codes: T78.40XA - Allergy, unspecified, initial encounter Disposition: HOME / SELF CARE / HOMELESS Condition: Stable e-Prescriptions Famotidine (Pepcid AC) 20 Mg Tab 20 MG PO DAILY for 6 Days, #6 TAB Prov: JOAQUIN CROFT 01/03/25 Methylprednisolone (Medrol Dosepak) 4 Mg Marv 4 MG PO UD for 6 Days, #21 TAB UAD Prov: JOAQUIN CROFT 01/03/25 Discharged With: Significant Other Critical Care Note Critical Care Time?: No Stability Stability form required: No JOAQUIN CROFT Jan 03, 2025 03:36
== END 2025-01-03 03:47 | disposition home or self-care (01) ==
LOC: ER 23:39
DX: T78.40XA Allergy, unspecified, initial encounter (principal); Z90.49 Acquired absence of other specified parts of digestive tract; Z98.51 Tubal ligation status; Z88.2 Allergy status to sulfonamides; X58.XXXA Exposure to other specified factors, initial encounter
CPT/HCPCS: 96372; 99284; J1100; J1200

== ENCOUNTER 2025-01-25 10:06 | Emergency (ER) | payer BC, OTHER ==
[~2025-01-25] VITALS: Ht 162.6 cm; Wt 91.5 kg
[2025-01-25 10:39] VITALS: BP 122/73; PULSE 96; RESP 18; TEMP 98; O2SAT 98
--- NOTE | 2025-01-25 10:48 | ED.PDOC ---
History of Present Illness(SKN HPI Comments A 39 YEAR OLD FEMALE PRESENTS TO THE ED WITH COMPLAINT OF RASH. PATIENT STATES SHE HAS BEEN EXPERIENCING A GENERALIZED BODY RASH WITH ITCHINESS OFF AND ON FOR THE PAST 2 WEEKS. PATIENT NOTES SHE CAME TO THIS ED 2 WEEKS AGO FOR THIS COMPLAINT WHERE SHE WAS ONLY GIVEN BENADRYL, BUT NOTES THERE HAS BEEN NO IM PROVEMENT IN HER SYMPTOMS. PATIENT DENIES FEVER, CHILLS, SHORTNESS OF BREATH, CHEST PAIN, ABDOMINAL PAIN, NAUSEA, VOMITING, HEADACHE, OR OTHER COMPLAINTS. NO OTHER SYMPTOMS OR MODIFYING FACTORS AT THIS TIME. PATIENT IS ALERT, ORIENTED X 4, AND HAS STEADY GAIT. Chief Complaint: Rash Time Seen by MD: 10:23 Primary Care Provider: JOSSIE History of Present Illness: Nurses Notes, Medications, Allergies Allergies: Coded Allergies: Sulfa Antibiotics (Verified Allergy, Mild, 06/01/22) Home Meds Active Scripts Hydroxyzine Hcl (Hydroxyzine Hcl) 50 Mg Tab, 1 TAB PO BID, #30 TAB Prov:NORBERTO VIVAR 01/25/25 Prednisone (Prednisone) 20 Mg Tab, 60 MG PO DAILY, #24 MG Prov:NORBERTO VIVAR 01/25/25 Hydrocodone-Acetaminophen (Hydrocodone Bitartrate/AC 10-325 mg) 1 Tab Tab, 1 TAB PO TID PRN, #12 TAB Prov:NORBERTO VIVAR 09/29/24 Cyclobenzaprine Hcl (Cyclobenzaprine Hcl) 5 Mg Tab, 1 TAB PO QHSP PRN for 30 Days, #30 TAB 0 Refills Prov:BALJIT SELF NP 05/07/24 Naproxen (Naproxen) 375 Mg Tab, 1 TAB PO BIDPC for 14 Days, #28 TAB 0 Refills Prov:BALJIT SELF NP 05/07/24 Ondansetron (Zofran) 4 Mg Tab, 4 MG PO BID for 7 Days, #14 MG Prov:MACIEJ OTERO MD 02/01/23 Oxycodone W/ Acetaminophen (Percocet 5/325MG) 1 Tab Tb, 1 TAB PO BID for 7 Days, #14 TAB Prov:MACIEJ OTERO MD 02/01/23 Tramadol Hcl (Tramadol Hcl) 50 Mg Tab, 50 MG PO Q6HP PRN for 7 Days, #28 TAB Prov:SAMPSON KHAN MD 01/27/23 Cephalexin ( Keflex 500) 500 Mg Cap, 1 CAP PO TID for 7 Days, #21 CAP Prov:VIKKI POOLE MD 06/03/22 Information Source: Patient Mode of Arrival: Ambulatory Severity: Mild, Moderate Timing: Weeks Duration: Intermittent Prehospital treatment: None Location: Generalized Mechanism: Spontaneous Onset Developed: Rash Occurence: Indoors Object: None Condition of Object: None Retained Foreign Body: No Wound Type: None Immunization Status of Animal: NA Tetanus: Unknown History of: None Associated Signs and Symptoms: Redness Past Medical History PAST MEDICAL HISTORY: Denies Surgical History: BTL, Cholecystectomy CLOTHES MODEL History: Denies all CLOTHES MODEL Hx Family History Family History: Reviewed,noncontributory to illness, Family hx of DM, Family hx of Cancer Social History Smoker: Non-Smoker Alcohol: Occasionally Drugs: Denies Drug Use Lives In: Home Constitutional: denies: chills, diaphoresis, fatigue, fever, malaise, sweats, weakness, others EENTM: denies: blurred vision, double vision, ear bleeding, ear discharge, ear drainage, ear pain, ear ringing, eye pain, eye redness, hearing loss, mouth pain, mouth swelling, nasal discharge, nose bleeding, nose congestion, nose pain, photophobia, tearing, throat pain, throat swelling, voice changes, others Respiratory: denies: cough, hemoptysis, orthopnea, SOB at rest, shortness of breath, SOB with excertion, stridor, wheezing, others Cardiovascular: denies: chest pain, dizzy spells, diaphoresis, Dyspnea on exertion, edema, irregular heart beat, left arm pain, lightheadedness, palpitations, PND, syncope, others Gastrointestinal: denies: abdomen distended, abdominal pain, blood streaked bowels, constipated, diarrhea, dysphagia, difficulty swallowing, hematemesis, melena, nausea, poor appetite, poor fluid intake, rectal bleeding, rectal pain, vomiting, others Genitourinary: denies: abnormal vagina bleeding, burning, dyspareunia, dysuria, flank pain, frequency, hematuria, incontinence, pain, , vagina discharge, urgency, others Neurological: denies: dizziness, fainting, headache, left sided numbness, left sided weakness, numbness, paresthesia, pre-existing deficit, right sided numbness, right sided weakness, seizure, speech problems, tingling, tremors, weakness, others Musculoskeletal: denies: back pain, gout, joint pain, joint swelling, muscle pain, muscle stiffness, neck pain, others Integumetry: reports: rash; denies: bruises, change in color, change in hair/nails, dryness, laceration, lesions, lumps, wounds, others Allergic/Immunocompromised: reports: Hives, Itching; denies: Difficulty Healing, Frequent Infections, others Hematologic/Lymphatic: denies: anemia, blood clots, easy bleeding, easy bruising, swollen glands, others Endocrine: denies: excessive hunger, excessive sweating, excessive thirst, excessive urination, flushing, intolerance to cold, intolerance to heat, unexplained weight gain, unexplained weight loss, others Psychiatric: denies: anxiety, bipolar disorder, depression, hopeless, panic disorder, schizophrenia, sleepless, suicidal, others All Other Systems: Reviewed and Negative Physical Exam General Appearance: No Apparent Distress, Obese HEENT: Normal ENT Inspection, PERRL/EOMI, Pharynx Normal, TMs Normal Neck: Full Range of Motion, Non-Tender, Normal, Normal Inspection Respiratory: Chest Non-Tender, Lungs Clear, No Accessory Muscle Use, No Respiratory Distress, Normal Breath Sounds Cardiovascular: No Edema, No JVD, No Murmur, No Gallop, Normal Peripheral Pulses, Regular Rate/Rhythm Breast Exam: Deferred Gastrointestinal: No Organomegaly, Non Tender, No Pulsatile Mass, Normal Bowel Sounds, Soft Genitalia: Deferred Pelvic: Deferred Rectal: Deferred Extremities: No calf tenderness, Normal capillary refill, Normal inspection, Normal range of motion, Non-tender, No pedal edema Musculoskeletal : Apperance: Normal Neurologic: Alert, beater engineer II-XII nml as Tested, No Motor Deficits, Normal Affect, Normal Mood, No Sensory Deficits Cerebellar Function: Normal Reflexes: Normal Skin: Dry, Rash (ERYTHEMA SKIN RASH WITH HIVES ON UPPER AND LOWER BODY, NO TENDERNESS AND SWELLING, NO OPEN WOUND SEEN. ), Warm Peripheral Pulses: 2+ carotid (R), 2+ carotid (L) Lymphatic: No Adenopathy Was a procedure done? Was a procedure done?: No Differential Diagnosis (INTG) Differential Diagnosis: N/A Differential Diagnosis: Atopic dermatitis, Contact Dermatitis, Intertrigo, Urticaria, Other (ALLERGIC REACTION) Differential Diagnosis: N/A Abscess: N/A Differential Diagnosis: N/A X-Ray, Labs, Meds, VS Vital Signs Date Time Temp Pulse Resp B/P (MAP) Pulse Ox O2 Delivery O2 Flow Rate FiO2 01/25/25 10:39 98.0 96 18 122/73 (89) 98 98.0 01/25/25 10:39 96 18 98 Room Air 01/25/25 10:15 98.0 96 18 122/73 (89) 98 98.0 Current Medications Medications (Trade) Dose Ordered Sig/Carolyne Route Start Time Stop Time Status Last Admin Epinephrine HCl 0.3 mg ONCE ONCE IM 01/25/25 10:45 01/25/25 10:46 DC 01/25/25 10:55 Methylprednisolone Sodium Succinate (Solu Medrol) 125 mg ONCE ONCE IM 01/25/25 10:45 01/25/25 10:46 DC 01/25/25 10:55 X-Ray, Labs, Meds, VS Comment EXTERNAL MEDICAL RECORDS REVIEWED: [NONE] INDEPENDENT HISTORIANS: [NONE] SOCIAL DETERMINANTS OF HEALTH: [NONE] LABS ORDERED: NONE REVIEWED AND INTERPRETED RESULTS: NONE IMAGING ORDERED: NONE TREATMENTS ORDERED: SOLU-MEDROL 125 MG IM, EPINEPHRINE 0.3 MG IM PROCEDURES PERFORMED: NONE CRITICAL CARE TIME: NONE I HAVE DISCUSSED THE PATIENT WITH THE ATTENDING PHYSICIAN DR. POOLE AND HE AGREES WITH THE PATIENT'S PLAN OF CARE AND DISPOSITION. BASED ON HISTORY OF PRESENT ILLNESS, AND PHYSICAL EXAM, PATIENT WILL BE DISCHARGED HOME. DISCUSSED PLAN FOR DISCHARGE HOME WITH RX [PREDNISONE AND [facility]AR[facility]]. MEDICATION WARNINGS GIVEN. SHARED DECISION MAKING: PATIENT INSTRUCTED TO FOLLOW UP WITH PRIMARY CARE PROVIDER IN 1-2 DAYS FOR RE-EVALUATION OF SYMPTOMS. PATIENT VERBALIZES UNDERSTANDING TO RETURN TO ED FOR NEW OR WORSENING SYMPTOMS OR IF FOLLOW UP WITH PCP CANNOT BE OBTAINED. PATIENT FEELS COMFORTABLE GOING HOME AT THIS TIME. ALL QUESTIONS ADDRESSED AT TIME OF DISCHARGE. Time of 1ST Reevaluation: 11:26 Reevaluation 1ST: Improved Patient Education/Counseling: Diagnosis, Treatment, Need For Follow Up Family Education/Counseling: Diagnosis, Treatment, Need For Follow Up Medical Screening: No EMC Exist At This Time Departure 1 Departure Time of Disposition: 11:30 Impression: Primary Impression: Allergic reaction Qualified Codes: T78.40XD - Allergy, unspecified, subsequent encounter Disposition: 01 HOME / SELF CARE / HOMELESS Condition: Stable Additional Instructions: FOLLOW-UP WITH PCP IN 1 TO 2 DAYS. TAKE MEDICATIONS PRESCRIBED. RETURN TO ED FOR ANY NEW OR WORSENING SYMPTOMS. e-Prescriptions Hydroxyzine Hcl (Hydroxyzine Hcl) 50 Mg Tab 1 TAB PO BID, #30 TAB Prov: NORBERTO VIVAR 01/25/25 Prednisone (Prednisone) 20 Mg Tab 60 MG PO DAILY, #24 MG Prov: NORBERTO VIVAR 01/25/25 Discharged With: Self, Spouse Critical Care Note Critical Care Time?: No Stability Stability form required: No I personally scribed for NORBERTO VIVAR ([email or web address]) on 01/25/25 at 10:48. Electronically submitted by Brooks Romero ([email or web address]). NORBERTO VIVAR Jan 25, 2025 10:48
[2025-01-25] MEDS: EPINEPHrine HCL 1 MG/1 ML AMP IM ONE (10:55)
[2025-01-25] MEDS: methylPREDNISolone SOD SUCC 125 MG/2 ML VL IM ONE (10:55)
[2025-01-25] MEDS ORDERED: PRED20TA2 PO (10:56)
[2025-01-25] MEDS ORDERED: HYDR50TA69 PO (10:56)
== END 2025-01-25 11:16 | disposition home or self-care (01) ==
LOC: ER 10:06
DX: T78.40XA Allergy, unspecified, initial encounter (principal); Z90.49 Acquired absence of other specified parts of digestive tract; Z88.2 Allergy status to sulfonamides; Z98.51 Tubal ligation status; X58.XXXA Exposure to other specified factors, initial encounter
CPT/HCPCS: 96372; 99284; J0171; J2919